=== PATIENT | male | born 1945 | race Caucasian/White ===

== ENCOUNTER 2016-06-06 13:58 | Inpatient (IN) | payer OTHER, BC ==
[~2016-06-06] VITALS: Ht 172.7 cm; Wt 99.0 kg
[~2016-06-06 13:58] MED LIST: ASPEC81 PO; LPR25 PO; LPT40 PO; LSN5 PO; NTRSLP4 SL; PLV75 PO
[2016-06-06] MEDS ORDERED: SODIUM CHLORIDE 0.9% 1000ML 1,000 ML IV STA ×2 (14:32→15:53)
[2016-06-06] MEDS ORDERED: PIPERACILLIN/TAZOBACTAM 4.5 GM/100ML D5W IV STA (15:00)
[2016-06-06] MEDS ORDERED: OPTIRAY 320 IV PRN (15:00)
--- NOTE | 2016-06-06 15:17 | DIAGNOSTIC IMAGING REPORT ---
CHEST ONE VIEW PORTABLE CLINICAL HISTORY: fever dyspnea COMPARISON STUDY: 05/29/2016 FINDINGS: Slowly developing parenchymal infiltrate left base. Lungs otherwise appear clear. Diaphragms smooth. IMPRESSION: Small developing parenchymal infiltrate left base. Electronically signed by: Darrian Hernandez M.D. 06/06/2016 3:16 PM
[2016-06-06] MEDS ORDERED: LEVAQUIN 750MG / 150ML D5W IV STA (15:26)
[2016-06-06 15:30] LABS: BASO % 0.1 %; BASO ABS # 0.01 K/uL (0-0.2); COMPLETE YES; EOS % 0.1 %; HEMATOCRIT 39.4 % (42-52); IG% 0.1 %; LYMPH ABS # 0.72 K/uL (1.2-3.4); MEAN CELL VOLUME 95.4 fL (80-100); MEAN CORPUSCULAR HEMOGLOBIN 33.4 pg (25-34); MEAN PLATELET VOLUME 11.1 fL (7.4-10.4); MONO % 7.4 %; NEUT % 85.3 %; PLATELET COUNT 110 K/uL (130-400); RED BLOOD COUNT 4.13 M/uL (4.7-6.1); WHITE BLOOD COUNT 10.29 K/uL (4.8-10.8)
[2016-06-06] MEDS ORDERED: LEVAQUIN 500MG / 100ML D5W IV ONE (15:30)
[2016-06-06 15:36] LABS: INR 1.1 (0.9-1.1); PROTHROMBIN TIME (PATIENT) 12.1 SECONDS (9.0-12.0)
[2016-06-06 15:39] LABS: ISTAT CREATININE 1.4 mg/dl (0.6-1.3); ISTAT HEMOGLOBIN 13.3 g/dl (14.0-18.0); ISTAT IONIZED CALCIUM 1.16 mmol/l (1.12-1.32)
[2016-06-06 15:46] LABS: ALT/SGPT 37 U/L (12-78); BLOOD UREA NITROGEN 24 mg/dl (7-18); BUN/CREATININE RATIO 18.2 (10-20); CALCIUM 8.4 mg/dl (8.5-10.1); CARBON DIOXIDE 26 mmol/L (21-32); CHLORIDE 100 mmol/L (98-107); GLUCOSE 126 mg/dl (70-99); MAGNESIUM 2.2 mg/dl (1.8-2.4); POTASSIUM 3.5 mmol/L (3.5-5.1); SODIUM 137 mmol/L (136-145)
[2016-06-06 15:52] LABS: ALKALINE PHOSPHATASE 78 U/L (45-117); AST/SGOT 41 U/L (15-37)
[2016-06-06] MEDS ORDERED: NITROGLYCERIN 0.4 MG SL PER TAB CHARGE SL PRN (17:00)
[2016-06-06 18:25] VITALS: BP 128/67; PULSE 99; TEMP 36.3; O2SAT 99; Ht 172.7 cm; Wt 99.0 kg
[2016-06-06 18:37] LABS: URINE APPEARANCE CLEAR (CLEAR); URINE BILIRUBIN NEG (NEG); URINE COLOR YELLOW; URINE EPITHELIAL CELL AUTO >30 /lpf (0-5); URINE NITRITE NEG (NEG); URINE PH 5.5 (4.5-7.5); URINE SPECIFIC GRAVITY 1.019 (1.000-1.030); UROBILINOGEN NEG (NEG); ZZUR CULT IF INDIC CLEAN CATCH NO
[2016-06-06 18:38] LABS: MANUAL MICROSCOPIC REQUIRED? NO; REVIEW REQ? YES
[2016-06-06 18:52] LABS: URINE MUCUS PRESENT (NONE PRSENT)
--- NOTE | 2016-06-06 18:52 | EMERGENCY ROOM VISIT NOTE ---
History Report prepared by David: Audrey Ruiz Under the Supervision of: Dr. Adan Oconnor D.O. First contact with patient: 14:14 Chief Complaint: ILLNESS Stated Complaint: N/V/D, TEMP 39.5 History of Present Illness The patient is a 71 year old male who presents to the Emergency Room with complaints of worsening illness that started 4 days ago. The patient has been experiencing a fever for 3 days and the highest temperature was recorded at 39.5. The fever is relieved with Tylenol. He is also experiencing a headache, shaking, nausea, vomiting, diarrhea, and generalized muscle pain. The patient vomited twice yesterday and once this morning. He denies cough, rhinorrhea, sore throat, pain or burning with urination, and hematochezia. He also denies open wounds or sores. The patient was seen by his PCP two days ago and they thought it was viral but when his fever elevated his decided to bring him in. His is a nurse in the ED. The patient's states that the patient's daughter and son were sick with similar symptoms when they came to visit for [place]. The patient had a [place] last week and received a heart catheterization. One stent was put in. He was started on metoprolol, statin, lisinopril, Plavix, and aspirin, which are all new for him. The patient denies recent C Diff exposure. Source of History: patient Onset: 4 days ago Position: other (generalized) Quality: other (illness) Timing: worsening Associated Symptoms: + diarrhea, + fevers, + headache, + nausea, + vomiting , No cough, No hematochezia, No sorethroat, No urinary symptoms (pain or burning with urination) Note: shaking, generalized muscle pain, no rhinorrhea Review of Systems See HPI for pertinent positives & negatives. A total of 10 systems reviewed and were otherwise negative. Past Medical & Surgical Medical Problems: (1) LLL PNEUMONIA (2) NSTEMI (non-ST elevated myocardial infarction) Family History No significant family history Social History Smoking Status: Never Smoker Marital Status: Housing Status: lives with significant other Occupation Status: employed Current/Historical Medications Scheduled Aspirin (Aspirin EC Low Dose), 81 MG PO QAM Atorvastatin (Atorvastatin Calcium), 40 MG PO QAM Clopidogrel Bisulfate (Clopidogrel), 75 MG PO QAM Lisinopril (Lisinopril), 5 MG PO QAM Metoprolol Tartrate (Lopressor), 25 MG PO Q12 Scheduled PRN Nitroglycerin (Nitrostat), 0.4 MG SL UD PRN for Chest Pain Allergies Coded Allergies: No Known Allergies (Unverified , 06/06/16) Physical Exam Vital Signs Date Time Temp Pulse Resp B/P Pulse Ox O2 Delivery O2 Flow Rate FiO2 06/06/16 16:08 36.8 86 21 102/62 91 Room Air 06/06/16 14:08 37.3 102 20 97/63 90 Room Air Physical Exam GENERAL: alert, sitting up in bed, well appearing, well nourished, no distress, non-toxic EYE EXAM: normal conjunctiva OROPHARYNX: no exudate, no erythema, lips, buccal mucosa, and tongue normal and mucous membranes are moist NECK: supple, no nuchal rigidity, no adenopathy, non-tender LUNGS: Clear to auscultation. Normal chest wall mechanics HEART: no murmurs, S1 normal and S2 normal ABDOMEN: abdomen soft, non-tender, normo-active bowel sounds, no masses, no rebound or guarding. BACK: Back is symmetrical on inspection and there is no deformity, no midline tenderness, no CVA tenderness. SKIN: no rashes and no bruising UPPER EXTREMITIES: upper extremities are grossly normal. LOWER EXTREMITIES: No pitting edema. NEURO EXAM: Normal sensorium, cranial nerves II-XII grossly intact, normal speech, no gross weakness of arms, no gross weakness of legs. Medical Decision & Procedures ER Provider Diagnostic Interpretation: Xray results per the radiologist and my interpretation. Other results have been interpreted by the radiologist and reviewed by me. CHEST ONE VIEW PORTABLE CLINICAL HISTORY: fever dyspnea COMPARISON STUDY: 05/29/2016 FINDINGS: Slowly developing parenchymal infiltrate left base. Lungs otherwise appear clear. Diaphragms smooth. IMPRESSION: Small developing parenchymal infiltrate left base. Electronically signed by: Darrian Hernandez M.D. 06/06/2016 3:16 PM Laboratory Results 06/06/16 15:05 Red Blood Count 4.13, Mean Corpuscular Volume 95.4, Mean Corpuscular Hemoglobin 33.4, Mean Corpuscular Hemoglobin Concent 35.0, Mean Platelet Volume 11.1, Neutrophils (%) (Auto) 85.3, Lymphocytes (%) (Auto) 7.0, Monocytes (%) (Auto) 7.4, Eosinophils (%) (Auto) 0.1, Basophils (%) (Auto) 0.1, Neutrophils # (Auto) 8.78, Lymphocytes # (Auto) 0.72, Monocytes # (Auto) 0.76, Eosinophils # (Auto) 0.01, Basophils # (Auto) 0.01 06/06/16 15:05 Test 06/06/16 15:00 06/06/16 15:05 06/06/16 15:20 06/06/16 15:28 Influenza Type A Antigen Neg for Influ A (NEG) Influenza Type B Antigen Neg for Influ B (NEG) White Blood Count 10.29 K/uL (4.8-10.8) Red Blood Count 4.13 M/uL (4.7-6.1) Hemoglobin 13.8 g/dL (14.0-18.0) Hematocrit 39.4 % (42-52) Mean Corpuscular Volume 95.4 fL (80-100) Mean Corpuscular Hemoglobin 33.4 pg (25-34) Mean Corpuscular Hemoglobin Concent 35.0 g/dl (32-36) Platelet Count 110 K/uL (130-400) Mean Platelet Volume 11.1 fL (7.4-10.4) Neutrophils (%) (Auto) 85.3 % Lymphocytes (%) (Auto) 7.0 % Monocytes (%) (Auto) 7.4 % Eosinophils (%) (Auto) 0.1 % Basophils (%) (Auto) 0.1 % Neutrophils # (Auto) 8.78 K/uL (1.4-6.5) Lymphocytes # (Auto) 0.72 K/uL (1.2-3.4) Monocytes # (Auto) 0.76 K/uL (0.11-0.59) Eosinophils # (Auto) 0.01 K/uL (0-0.5) Basophils # (Auto) 0.01 K/uL (0-0.2) RDW Standard Deviation 44.8 fL (36.4-46.3) RDW Coefficient of Variation 12.9 % (11.5-14.5) Immature Granulocyte % (Auto) 0.1 % Immature Granulocyte # (Auto) 0.01 K/uL (0.00-0.02) Prothrombin Time 12.1 SECONDS (9.0-12.0) Prothromb Time International Ratio 1.1 (0.9-1.1) Est Creatinine Clear Calc Drug Dose 57.4 ml/min Estimated GFR () 63.2 Estimated GFR (Non- 54.5 BUN/Creatinine Ratio 18.2 (10-20) Calcium Level 8.4 mg/dl (8.5-10.1) Magnesium Level 2.2 mg/dl (1.8-2.4) Total Bilirubin 0.9 mg/dl (0.2-1) Direct Bilirubin 0.3 mg/dl (0-0.2) Aspartate Amino Transf (AST/SGOT) 41 U/L (15-37) Alanine Aminotransferase (ALT/SGPT) 37 U/L (12-78) Alkaline Phosphatase 78 U/L (45-117) Total Creatine Kinase 41 U/L (39-308) Creatine Kinase MB < 0.5 ng/ml (0.5-3.6) Creatine Kinase MB Ratio (0-3.0) Troponin I 0.033 ng/ml (0-0.045) Total Protein 7.1 gm/dl (6.4-8.2) Albumin 3.2 gm/dl (3.4-5.0) Bedside Lactic Acid Venous 1.11 mmol/L (0.90-1.70) Bedside Hemoglobin 13.3 g/dl (14.0-18.0) Bedside Hematocrit 39 % (42-52) Bedside Sodium 137 mEq/L (135-144) Bedside Potassium 3.5 mEq/L (3.3-5.0) Bedside Chloride 97 mEq/L (101-112) Bedside Total CO2 24 mEq/l (24-31) Anion Gap 21.0 mmol/L (16-25) Bedside Blood Urea Nitrogen 24 mg/dl (7-18) Bedside Creatinine 1.4 mg/dl (0.6-1.3) Bedside Glucose (other) 134 mg/dl (70-99) Bedside Ionized Calcium (Priscilla) 1.16 mmol/l (1.12-1.32) Laboratory results per my review. Medications Administered Medications (Trade) Dose Ordered Sig/Anali Route Start Time Stop Time Status Last Admin Dose Admin Sodium Chloride (Nss 1000ml) 1,000 ml @ 999 mls/hr Q1H1M STAT IV 06/06/16 14:32 06/06/16 15:32 DC 06/06/16 14:32 999 MLS/HR Levofloxacin 750 mg 750 mg NOW STAT IV 06/06/16 15:26 06/06/16 15:27 DC 06/06/16 15:35 750 MG Sodium Chloride (Nss 1000ml) 1,000 ml @ 999 mls/hr Q1H1M STAT IV 06/06/16 15:53 06/06/16 16:53 DC 06/06/16 15:53 999 MLS/HR ECG Indication: nausea Rate (beats per minute): 88 Rhythm: sinus rhythm Findings: T-wave inversion (Inferior), left axis deviation ED Course ED COURSE: Vital signs were reviewed and showed hypotension, tachycardia, and hypoxia. The patients medical record was reviewed The above diagnostic studies were performed and reviewed. ED treatments and interventions as stated above. 1418: The patient was evaluated in room C7. A complete history and physical examination was performed. 1432: Ordered Sodium Chloride 1000 ml @ 999 mls/hr IV 1500: Ordered Zosyn 4.5 gm IV 1526: Ordered Levofloxacin 750 mg IV 1530: Ordered Levofloxacin 500 mg IV 1553: Ordered Sodium Chloride 1000 ml @ 999 mls/hr IV 1555: I [facility] the [facility] He will evaluate the patient for further management. 1616: Upon reevaluation, the patient is resting comfortably. I discussed my findings with the patient and he understands and agrees with the treatment plan. Based on the patients age, coexisting illnesses, exam and lab findings the decision to treat as an inpatient was made. The patient remained stable while under my care. The patient will be evaluated for further management.. Medical Decision Differential diagnosis includes etiologies such as sepsis, UTI, pneumonia, metabolic, electrolyte abnormalities, cardiac sources, intracerebral event, toxicologic, neurologic, as well as others were entertained. Patient is a 71-year-old male who presents the ER with nausea, vomiting and some intermittent diarrhea. He notes he has been having fevers at home with a max temp today of 39.5. He has been following with his primary care doctor and saw him on Friday. He denies any productive cough. He doesn't diffuse myalgias. Labs showed no significant leukocytosis and a stable hemoglobin. BMP along with LFTs and bilirubin are unremarkable. Troponin was detectable but not positive. UA was negative, an influenza screen was negative. Chest x- ray showed focal infiltrate. His abdominal exam was completely benign. Initially upon presentation he is found to be hypotensive with systolic pressures in the 90s along with O2 saturation of 90%. He was also slightly tachycardic. He was given 2 boluses of normal saline along with Levaquin and admitted to internal medicine as sepsis secondary to pneumonia. Consults Time Called: [phone] Consulting Physician[facility] Returned Call: [phone] I reviewed the patient's case with Dr. Saavedra [facility]. He will evaluate the patient for further management. Impression Primary Impression: Sepsis Additional Impression: Pneumonia Scribe Attestation The scribe's documentation has been prepared under my direction and personally reviewed by me in its entirety. I confirm that the note above accurately reflects all work, treatment, procedures, and medical decision making performed by me. Departure Information Dispostion Other (Being evaluated by Dr. Saavedra) Referrals Rich Kumar M.D. (PCP) Patient Instructions A Signature Page, My [facility]
[2016-06-06 18:53] LABS: URINE PATH CASTS 0-3 WBC CASTS /lpf (0)
[2016-06-06 19:11] VITALS: BP 107/62; PULSE 73; TEMP 36.8; O2SAT 96
[2016-06-06] MEDS: SODIUM CHLORIDE 0.9% 1000ML 1,000 ML IV SCH (19:33)
[2016-06-06] MEDS: CEFTRIAXONE SOD INJ 2,000 MG in DEXTROSE 5% 50ML 50 ML IV SCH (19:54)
[2016-06-06] MEDS: AZITHROMYCIN IV 500 MG in DEXTROSE 5% 250ML 250 ML IV SCH (20:57)
[2016-06-06] MEDS: METOPROLOL TARTRATE 25 MG TAB PO SCH (20:59)
[2016-06-07] VITALS: O2SAT 99
[2016-06-07 00:03] VITALS: BP 136/76; PULSE 74; TEMP 36.8; O2SAT 96
--- NOTE | 2016-06-07 04:45 | HISTORY & PHYSICAL EXAMINATION ---
DATE OF ADMISSION: 06/06/2016 A 71-year-old male admitted through the Emergency Room with fever and chills, generalized weakness, shortness of breath, nausea, vomiting and evidence of a left lower lobe pneumonia. The patient was admitted to [facility] on 05/29/2016 with chest pain. His cardiac catheterization showed a 99% stenosis of his right coronary artery. He had a stent placed. It was a drug-eluting stent. The procedure was very well tolerated. He was discharged home the following day. The procedure was done through his right wrist. The patient was doing quite well. He was not having any problem or any complaints. This past Friday, he started having problem with generalized ache and pain. He was feeling congested. He was developing fever. He had some chills. I did see him for his hospital followup and at that time he was complaining of feeling weak and tired. He was congested. He had some cough. Laboratory tests were ordered including influenza A and B, which were normal. Since then, his symptoms progressed. On the morning of admission, he called the office, stating he was having severe fever and chills. His temperature was over 39. He was feeling quite tired. He was congested. So I asked him to come to the Emergency Room. He was evaluated. His influenza A and B were negative. His chest x-ray showed evidence of developing left lower lobe infiltrate. I saw the patient in the Emergency Room and because of the severity of his symptoms, he was admitted for further treatment. PAST MEDICAL HISTORY: 1. Non-ST segment elevation myocardial infarction diagnosed on 05/29/2016. He underwent emergency cardiac catheterization. He had 99% stenosis of his right coronary artery. He had a drug-eluting stent placed. 2. Back in May of 2010, he was diagnosed with multiloculated liver abscess. He did have percutaneous drainage and subsequently transferred to [facility]. He did recover with antibiotic treatment. Did not require any further intervention. 3. Carcinoma of the prostate diagnosed in 2010, treated with brachytherapy on 04/19/2011. 4. History of colonic polyps. He has had repeated colonoscopies. The last one in 2009, the last colonoscopy was done in 2013 and was negative for any polyps. 5. Tonsillectomy at age 4. 6. Hypercholesterolemia. 7. Left inguinal hernia repair in the past. SOCIAL HISTORY: He is , has 3 children. He stopped smoking back in 1993. He did smoke for 35 years up to 2-3 packs per day. He also chewed tobacco and he stopped in 2004. He also smoked a pipe in the past. No alcohol. No excessive coffee, tea or soft drinks. 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 FAMILY HISTORY: His mother is in her 90s. She is at [facility]. His father at age 73, had a gunshot wound. He had 2 brothers and 2 sisters. One brother had heart disease. ALLERGIES: None. CURRENT MEDICATIONS: Include: 1. Plavix 75 mg daily. 2. Aspirin 81 mg daily. 3. Lipitor 40 mg daily. 4. Lisinopril 5 mg daily. 5. Metoprolol tartrate 25 mg twice a day. 6. Nitrostat 0.4 mg sublingually if needed. REVIEW OF SYSTEMS: The patient complains of generalized ache and pain. He is feeling weak. He has had recurrent fever. Recurrent chills. Recurrent nausea and vomiting. He has not had any chest pain. He was complaining of shortness of breath. No diarrhea. He was having pain in his back and extremities. PHYSICAL EXAMINATION: GENERAL: Well developed in no distress. His recorded weight was 99 pounds, height 172.7 cm, BMI 33.2. VITAL SIGNS: On arrival to the Emergency Room, his blood pressure was 97/63, pulse 102, respirations 20, temperature 37.2, oxygen saturation 90% on room air. SKIN: Warm and dry. No rash. HEENT: Eyes were normal. Oronasal and pharyngeal mucosa were normal. Tympanic membranes were normal. NECK: Supple without lymph node or thyroid enlargement. No JVD. Normal carotid pulses. No bruit. CHEST: Normal. HEART: Regular heart sounds without any murmur, rub or gallop. LUNGS: He does have scattered rhonchi. Rales, left side of his lung field. ABDOMEN: Soft, nontender without organomegaly or masses. BACK: No spinal tenderness. EXTREMITIES: No edema, clubbing or cyanosis. Good pulses. NEUROLOGIC: He is alert and oriented without evidence of any deficit. LABORATORY TESTS: On admission, WBC count 10,290, hemoglobin 13.8, hematocrit 39.4, platelet count 110,000. His INR was 1.1. Sodium 137, potassium 3.5, chloride 100, CO2 26, BUN 24, creatinine 1.3, glucose 126, calcium 8.4, magnesium 2.2, total bilirubin 0.9, direct bilirubin 0.3, AST 41, ALT 37, alkaline phosphatase 78, total CK 41, MB fraction less than 0.5, troponin I 0.033. Total protein 7.1, albumin 3.2. His chest x-ray showed evidence of a developing parenchymal infiltrate in the left base. ASSESSMENT: 1. Left lower lobe pneumonia. 2. Coronary artery disease. 3. Status post stenting of a 99% stenosis of his right coronary artery done on 05/29/2016. 4. Hypercholesterolemia. PLAN: The patient was admitted to medical bed. Resuscitation level 1. All his cultures were done in the Emergency Room. He was started on IV antibiotics. He will be continued on Rocephin and Zithromax. Tylenol for any fever or pain. He was started on IV fluid. He was continued on his oral medications. The plan is to proceed with IV antibiotics. Wait for his cultures. Adjust his antibiotic therapy as needed. Once his condition improves, he will be able to go home on oral antibiotics.
[2016-06-07 06:44] LABS: HEMATOCRIT 33.9 % (42-52); MEAN CELL VOLUME 95.2 fL (80-100); MEAN CORPUSCULAR HEMOGLOBIN 33.1 pg (25-34); MEAN CORPUSCULAR HGB CONC 34.8 g/dl (32-36); RED BLOOD COUNT 3.56 M/uL (4.7-6.1)
[2016-06-07 07:06] LABS: BASO % 0.1 %; BASO ABS # 0.01 K/uL (0-0.2); COMPLETE YES; EOS % 0.1 %; IG% 0.1 %; LARGE PLATELETS 1+; LYMPH % 6.8 %; LYMPH ABS # 0.67 K/uL (1.2-3.4); MEAN PLATELET VOLUME 10.7 fL (7.4-10.4); MONO % 14.5 %; NEUT % 78.4 %; PLATELET COUNT 95 K/uL (130-400); PLT ESTIMATE DECREASED
[2016-06-07 07:19] LABS: BUN/CREATININE RATIO 15.1 (10-20); CREATININE 0.96 mg/dl (0.60-1.40); POTASSIUM 3.6 mmol/L (3.5-5.1)
[2016-06-07] MEDS: ASPIRIN 81 MG ECTAB PO SCH (07:48)
[2016-06-07] MEDS: ATORVASTATIN 40 MG TAB PO SCH (07:48)
[2016-06-07] MEDS: SODIUM CHLORIDE 0.9% 1000ML 1,000 ML IV SCH ×3 (07:48→19:39)
[2016-06-07] MEDS: LISINOPRIL 5 MG TAB PO SCH (07:49)
[2016-06-07] MEDS: CLOPIDOGREL BISULFATE 75 MG TAB PO SCH (07:49)
[2016-06-07] MEDS: METOPROLOL TARTRATE 25 MG TAB PO SCH ×2 (07:49→19:38)
[2016-06-07 07:52] VITALS: BP 133/80; PULSE 79; TEMP 36.7; O2SAT 93
[2016-06-07] MEDS ORDERED: MAGNESIUM CITRATE 296 ML/BTL PO ONE (08:15)
--- NOTE | 2016-06-07 08:35 | Clinical Documentation Query ---
Dr. TRISH MCKINNEY [facility] : CLINICAL DOCUMENTATION QUERY Patient is a 71 year old male admitted with left lower lobe pneumonia in the setting of recurrent nausea with vomiting. He is being treated with IV Rocephin, IV Zithromax, and IVF, and monitored with serial chemistries and hematology. In your clinical opinion is this patient being managed for: ( ) Possible aspiration pneumonia ( ) Other explanation of clinical findings (Please Explain) ( ) Unable to determine (Please Define) ( ) Need to Discuss ( x ) Not Agree The medical record reflects the following clinical findings, treatment, and risk factors. Clinical Indicators: Pneumonia in the setting of recurrent nausea and vomiting. Treatment: He is being treated with IV Rocephin, IV Zithromax, and IVF, and monitored with serial chemistries and hematology Risk Factors: Recurrent nausea with vomiting Please clarify and document your clinical opinion in the progress notes and discharge summary. Terms such as "probable", "suspected", "likely", "questionable", "possible", or "still to be ruled out" are acceptable. IF IN AGREEMENT, YOU MUST DOCUMENT ABOVE DIAGNOSTIC STATEMENT IN DAILY PROGRESS NOTES AND DISCHARGE SUMMARY. This document is not part of the patient's record. Thank You, Jemal Lyons, RN [phone]
[2016-06-07] MEDS ORDERED: NURSING VERBAL MED ORDER ONE (08:45)
[2016-06-07 15:27] VITALS: BP 130/82; PULSE 18; PULSE 78; TEMP 36.8; O2SAT 93
[2016-06-07] MEDS: CEFTRIAXONE SOD INJ 2,000 MG in DEXTROSE 5% 50ML 50 ML IV SCH (19:39)
[2016-06-07 19:43] VITALS: BP 119/71; PULSE 73
[2016-06-07] MEDS: AZITHROMYCIN IV 500 MG in DEXTROSE 5% 250ML 250 ML IV SCH (20:34)
[2016-06-07 23:25] VITALS: BP 119/77; PULSE 61; TEMP 36.5; O2SAT 94
--- NOTE | 2016-06-07 23:48 | PROGRESS NOTE ---
DATE: 06/07/2016 A 71-year-old male admitted with left lower lobe pneumonia. He has coronary artery disease. He just was hospitalized with chest pain and had a [id number]-thlpcat elevation myocardial infarction and had cardiac catheterization showing 99% stenosis of his right coronary artery which was stented with a drug-eluting stent. He also has hypercholesterolemia. The patient was admitted. Cultures were done. He was started on Rocephin and Zithromax. Since admission, he remains completely afebrile. He is still feeling weak and tired and has poor appetite. He has no headache, no dizziness. No chest pain, no shortness of breath. He still has a cough, bringing up some sputum. No nausea, no vomiting, but his appetite is poor. No problem with his bowel movements. No problem urinating. No ankle edema. PHYSICAL EXAMINATION: GENERAL: Well developed, in no distress. VITAL SIGNS: Blood pressure 133/80, pulse 79, respiration 22, temperature 36.7, oxygen saturation 93% on room air. SKIN: Warm and dry. No rash. HEENT: No evidence of any mucosal abnormality. NECK: No JVD, no adenopathy. HEART: Regular heart sounds. No evident murmur, rub or gallop. LUNGS: Bilateral rhonchi. He does have evidence of rales at the left base. ABDOMEN: Soft, nontender. BACK: No spinal tenderness. EXTREMITIES: No edema, clubbing or cyanosis. No joint or muscle tenderness. TODAY'S LABORATORY TESTS: WBC count 9900, hemoglobin 11.8, hematocrit 33.9, platelet count 95,000. Sodium 139, potassium 3.6, chloride 105, CO2 25, BUN 15, creatinine 0.96, glucose 109, calcium 8.0. ASSESSMENT: 1. Left lower lobe pneumonia. 2. Coronary artery disease. 3. Hyperlipidemia. PLAN: 1. Continue all his medications. 2. He is encouraged to get out of bed and ambulate. 3. Waiting for the final culture results. 4. Overall, he is slowly improving. He has not had any fever since admission neither did he have any chills.
[2016-06-08 06:54] VITALS: BP 134/78; PULSE 64; TEMP 36.7; O2SAT 94
[2016-06-08] MEDS: CLOPIDOGREL BISULFATE 75 MG TAB PO SCH (07:30)
[2016-06-08] MEDS: ATORVASTATIN 40 MG TAB PO SCH (07:30)
[2016-06-08] MEDS: ASPIRIN 81 MG ECTAB PO SCH (07:30)
[2016-06-08] MEDS: METOPROLOL TARTRATE 25 MG TAB PO SCH ×2 (07:30→19:31)
[2016-06-08] MEDS: LISINOPRIL 5 MG TAB PO SCH (07:31)
[2016-06-08] MEDS: SODIUM CHLORIDE 0.9% 1000ML 1,000 ML IV SCH ×2 (07:31→17:46)
[2016-06-08 08:10] LABS: BASO % 0.3 %; BASO ABS # 0.03 K/uL (0-0.2); COMPLETE YES; EOS % 0.6 %; HEMATOCRIT 32.4 % (42-52); IG% 0.3 %; LYMPH % 10.2 %; LYMPH ABS # 0.95 K/uL (1.2-3.4); MEAN CELL VOLUME 94.2 fL (80-100); MEAN CORPUSCULAR HEMOGLOBIN 32.8 pg (25-34); MEAN CORPUSCULAR HGB CONC 34.9 g/dl (32-36); MEAN PLATELET VOLUME 11.1 fL (7.4-10.4); MONO % 9.2 %; NEUT % 79.4 %; PLATELET COUNT 107 K/uL (130-400); RED BLOOD COUNT 3.44 M/uL (4.7-6.1); WHITE BLOOD COUNT 9.33 K/uL (4.8-10.8)
[2016-06-08 08:38] LABS: BUN/CREATININE RATIO 11.8 (10-20); CALCIUM 7.9 mg/dl (8.5-10.1); CREATININE 0.85 mg/dl (0.60-1.40); POTASSIUM 3.3 mmol/L (3.5-5.1)
[2016-06-08] MEDS ORDERED: POTASSIUM CHLORIDE 10 MEQ TABCR PO ONE ×2 (10:00→14:00)
[2016-06-08 15:10] VITALS: BP 132/78; PULSE 72; TEMP 36.9; O2SAT 94
[2016-06-08] MEDS: ACETAMINOPHEN 325 MG TAB PO PRN (17:51)
[2016-06-08] MEDS: CEFTRIAXONE SOD INJ 2,000 MG in DEXTROSE 5% 50ML 50 ML IV SCH (19:30)
[2016-06-08 19:38] VITALS: BP 129/72; PULSE 72; TEMP 36.8
[2016-06-08] MEDS: AZITHROMYCIN IV 500 MG in DEXTROSE 5% 250ML 250 ML IV SCH (20:35)
[2016-06-08 22:53] VITALS: BP 115/69; PULSE 59; TEMP 36.9; O2SAT 94
[2016-06-09] MEDS: ACETAMINOPHEN 325 MG TAB PO PRN (03:10)
[2016-06-09] MEDS: SODIUM CHLORIDE 0.9% 1000ML 1,000 ML IV SCH (05:29)
--- NOTE | 2016-06-09 05:50 | PROGRESS NOTE ---
DATE: 06/08/2016 SUBJECTIVE: A 71-year-old male admitted with a left upper lobe pneumonia. He just had a non-ST segment elevation myocardial infarction and had a 99% stenosis of his RCA and had a drug-eluting stent placed. Since admission, he remains afebrile. He is still feeling weak and tired. His appetite is still poor. He denied any headache. No dizziness. Denied any chest pain. No shortness of breath. He has been ambulating. No nausea, no vomiting. Poor appetite. No problem urinating. One of the 2 blood cultures drawn on admission did grow gram positive cocci and the final report is still pending. PHYSICAL EXAMINATION: GENERAL: Well developed, in no distress. VITAL SIGNS: Blood pressure 134/78, pulse 64, respiration 18, temperature 36.7, oxygen saturation 94% on room air. SKIN: Warm and dry. No rash. HEENT: No mucosal abnormality. NECK: No JVD. No adenopathy. HEART: Regular heart sounds. LUNGS: He does have basilar rales on the left side. ABDOMEN: Soft, nontender, without organomegaly or masses. BACK: No spinal tenderness. EXTREMITIES: No edema, clubbing, or cyanosis. TODAY'S LABORATORY TESTS: WBC count 9330, hemoglobin 11.3, hematocrit 32.4, platelet count 107,000. Sodium 140, potassium 3.3, chloride 106, CO2 of 25, BUN 10, creatinine 0.85, glucose 94, calcium 7.9. As noted, one blood culture is growing gram positive cocci. ASSESSMENT: 1. Left lower lobe pneumonia. 2. One positive blood culture. I am not sure up to this point whether it is just a contaminant. 3. Coronary artery disease. 4. Hypercholesterolemia. PLAN: 1. Continue the same antibiotics. 2. Continue ambulation. 3. His cardiac status is stable. 4. If his condition remains stable and his blood culture prove to be more of a contaminant then I anticipate sending home tomorrow. JORDON
[2016-06-09 07:04] VITALS: BP 130/68; PULSE 70; TEMP 36.9; O2SAT 95
[2016-06-09 07:55] LABS: HEMATOCRIT 32.7 % (42-52); MEAN CELL VOLUME 94.5 fL (80-100); MEAN CORPUSCULAR HEMOGLOBIN 32.1 pg (25-34); MEAN CORPUSCULAR HGB CONC 33.9 g/dl (32-36); MEAN PLATELET VOLUME 10.8 fL (7.4-10.4); PLATELET COUNT 128 K/uL (130-400); RED BLOOD COUNT 3.46 M/uL (4.7-6.1); WHITE BLOOD COUNT 9.11 K/uL (4.8-10.8)
[2016-06-09] MEDS: ASPIRIN 81 MG ECTAB PO SCH (08:10)
[2016-06-09] MEDS: ATORVASTATIN 40 MG TAB PO SCH (08:10)
[2016-06-09] MEDS: METOPROLOL TARTRATE 25 MG TAB PO SCH (08:10)
[2016-06-09] MEDS: CLOPIDOGREL BISULFATE 75 MG TAB PO SCH (08:10)
[2016-06-09] MEDS: LISINOPRIL 5 MG TAB PO SCH (08:11)
[2016-06-09 08:20] LABS: BASO % 0.2 %; BASO ABS # 0.02 K/uL (0-0.2); COMPLETE YES; EOS % 1.1 %; IG% 0.2 %; LYMPH % 13.8 %; LYMPH ABS # 1.26 K/uL (1.2-3.4); MONO % 7.2 %; NEUT % 77.5 %
[2016-06-09 08:28] LABS: BUN/CREATININE RATIO 9.5 (10-20); CALCIUM 7.8 mg/dl (8.5-10.1); CREATININE 0.84 mg/dl (0.60-1.40); POTASSIUM 3.7 mmol/L (3.5-5.1)
--- NOTE | 2016-06-09 09:22 | DIAGNOSTIC IMAGING REPORT ---
SINGLE VIEW CHEST CLINICAL HISTORY: Left lower lobe consolidation FINDINGS: An AP, portable, upright chest radiograph is compared to study dated 06/06/2016. The heart is mildly enlarged and there is atherosclerotic calcification of the thoracic aorta. There is mild elevation of the left hemidiaphragm and bibasilar atelectasis. No airspace consolidation is seen typical for pneumonia and there is no pleural effusion. No pneumothorax is seen. The skeletal structures are osteopenic. The bony thorax is grossly intact. IMPRESSION: Mild cardiac enlargement with no acute cardiopulmonary abnormality. Electronically signed by: Alexandro Hernandez M.D. 06/09/2016 9:20 AM
[2016-06-09] MEDS ORDERED: AMOX500T PO (09:30)
--- NOTE | 2016-06-09 09:33 | Discharge Instructions ---
Discharge Instructions Admission Reason for Admission: Lll Pneumonia Discharge Discharge Diagnosis / Problem: LEFT LOWER LOBE PNEUMONIA. CORONARY ARTERY DISEASE. HYPERCHOLESTEROLEMIA Discharge Goals Goal(s): Decrease discomfort, Improve disease control Activity Recommendations Activity Limitations: resume your previous activity . Instructions / Follow-Up Instructions / Follow-Up DR COWART IN [address] JACOBSON SCHEDULED Current Hospital Diet Patient's current hospital diet: AHA Diet (Heart Healthy) Discharge Diet Recommended Diet: AHA Diet (Heart Healthy) Pending Studies Studies pending at discharge: no Medical Emergencies . Who to Call and When: Medical Emergencies: If at any time you feel your situation is an emergency, please call 911 immediately. . Non-Emergent Contact Non-Emergency issues call your: Primary Care Provider . . "Provider Documentation" section prepared by Rich Cowart. VTE Core Measure Inpt VTE Proph given/why not?: Other Anticoagulation
[2016-06-09 09:42] VITALS: BP 130/68; PULSE 70; TEMP 36.9; O2SAT 95
--- NOTE | 2016-06-09 18:47 | PROGRESS NOTE ---
DATE: 06/09/2016 A 71-year-old male, admitted with left lower lobe pneumonia. He recently was hospitalized with a non-ST segment elevation myocardial infarction and had 99% stenosis of his right coronary artery with a drug-eluting stent placed. Overall, he is doing well. He has remained afebrile since his admission and was started on the IV antibiotics. His cough has subsided. This morning he denied any headache, dizziness or lightheadedness. No chest pain, no shortness of breath. No cough, no sputum. No abdominal pain, no nausea, no vomiting. No problem with his bowel movements or urination. No pain in his back or extremities. He has been ambulating. PHYSICAL EXAMINATION: GENERAL: Well-developed, in no distress. VITAL SIGNS: Blood pressure 130/68, pulse 70, respirations 18, temperature 36.9 and oxygen saturation 95% on room air. SKIN: Warm and dry. No rash. HEENT: No evidence of any mucosal congestion. NECK: No JVD, no adenopathy. HEART: Regular heart sounds. LUNGS: Clear. ABDOMEN: Soft, nontender. BACK: No spinal tenderness. EXTREMITIES: No edema, clubbing or cyanosis. TODAY'S LABORATORY TESTS: WBC count 9110, hemoglobin 11.1, hematocrit 32.7, platelet count 128,000. Sodium 143, potassium 3.7, chloride 109, CO2 25, BUN 8, creatinine 0.84, glucose 92, calcium 7.8. Chest x-ray showed no evidence of any pulmonary abnormality. He does have mild cardiomegaly. The suspected infiltrate in the left lower lobe has completely resolved. ASSESSMENT: 1. Left lower lobe pneumonia. 2. Coronary artery disease. 3. Status post stenting of 99% stenosis of his right coronary artery. 4. Hypercholesterolemia. PLAN: 1. Overall, his condition is stable and he has did very well. His lung abnormality has clear. 2. He will continue all his preadmission medications. 3. Augmentin 500 mg three times a day for seven days was added. 4. He was discharged home today. 5. Follow up in the office in one week.
--- NOTE | 2016-06-23 19:16 | DISCHARGE SUMMARY ---
DISCHARGE DIAGNOSES: 1. Left lower lobe pneumonia. 2. Coronary artery disease. 3. Hypercholesterolemia. DISCHARGE MEDICATIONS: 1. Augmentin 500 mg 3 times a day for 7 days. 2. Aspirin 81 mg daily. 3. Atorvastatin 40 mg daily. 4. Plavix 75 mg daily. 5. Lisinopril 5 mg daily. 6. Metoprolol tartrate 25 mg twice a day. 7. Nitrostat 0.4 mg sublingually if needed for chest pain. Mr. West is a 71-year-old male admitted through the Emergency Room with fever and chills, generalized weakness, shortness of breath, nausea, vomiting and evidence of left lower lobe pneumonia. HOSPITAL COURSE: The patient was admitted to [facility] on 05/29/2016 with chest pain. He had a 99% stenosis of his right coronary artery and had a stent placed. His cardiac condition has been stable since then. The patient was doing quite well without any problems, but the Friday prior to his admission he started having generalized aches and pains and was feeling congested. He has developed fever. He had some chills. I did see him for his hospital followup after his non-ST segment elevation myocardial infarction and was complaining of feeling weak and tired. He was congested. He had some cough. Laboratory tests including influenza A and B were negative. Since his office visit his symptoms have progressed. On the morning of admission, he called the office stating that he was having fever and chills and his temperature was over 39. He was feeling quite tired. He was congested. I asked him to come to the Emergency Room to be evaluated. His chest x-ray showed evidence of left lower lobe infiltrate. He was admitted for further treatment. PAST MEDICAL HISTORY, SOCIAL HISTORY AND FAMILY HISTORY: All as noted on his admission history and physical. ALLERGIES: None. MEDICATIONS ON ADMISSION: All as noted on his admission history and physical. PHYSICAL EXAMINATION AND ADMISSION LABORATORY TESTS: All as noted. HOSPITAL COURSE: The patient was admitted to medical bed. Resuscitation level 1. Cultures were done. Laboratory tests were done. He was started on IV Zithromax and Rocephin. He was started on IV fluids. He was continued on his oral medications. His condition was closely monitored. His cardiac status remained stable. After admission, he remained afebrile. His symptoms started to improve. He was feeling less congested. He was tolerating his medications and tolerating the increase in his activity. Repeat chest x-ray showed resolution of the left lower lobe abnormality. Once his condition improved and he was tolerating his diet his appetite started to improve and he was ambulating without any problems. The patient was discharged home on the medications as noted above. Follow up in the office in one week. The patient was to continue with his cardiology followup.
== END 2016-06-09 11:17 | disposition home or self-care (01) | DRG 195 ==
LOC: ENRESERVTM → ENRESERVDT → C.EDB 13:59 → C.MS4W 16:58
PROVIDERS: ADMIT Internal Medicine; ATTEND Internal Medicine
DX: J18.9 Pneumonia, unspecified organism (principal); I25.10 Atherosclerotic heart disease of native coronary artery without angina pectoris; E78.00 Pure hypercholesterolemia, unspecified; Z85.46 Personal history of malignant neoplasm of prostate; Z87.891 Personal history of nicotine dependence; Z86.010 Personal history of colon polyps; Z79.82 Long term (current) use of aspirin

== ENCOUNTER → 2016-08-07 | Outpatient (CLI) | payer OTHER, BC ==
[2016-08-07 12:59] LABS: BLOOD UREA NITROGEN 16 mg/dl (7-18); GLUCOSE 87 mg/dl (70-99)
[2016-08-07 13:00] LABS: ALT/SGPT 32 U/L (12-78); AST/SGOT 20 U/L (15-37); BUN/CREATININE RATIO 13.1 (10-20); CALCIUM 8.7 mg/dl (8.5-10.1); CARBON DIOXIDE 27 mmol/L (21-32); CHLORIDE 105 mmol/L (98-107); POTASSIUM 4.2 mmol/L (3.5-5.1); SODIUM 140 mmol/L (136-145)
[2016-08-07 13:01] LABS: ALB/GLOB RATIO 1.1 (0.9-2); ALKALINE PHOSPHATASE 70 U/L (45-117); CHOLESTEROL 98 mg/dl (0-200); CHOLESTEROL/HDL RATIO 2.5; HDL CHOLESTEROL 40 mg/dl; TRIGLYCERIDES 70 mg/dl (0-150); VERY LOW DENSITY LIPOPROT CALC 14 mg/dl
== END | disposition home or self-care (01) ==
LOC: C.LABSPEC 12:11
PROVIDERS: ATTEND Internal Medicine
DX: I25.10 Atherosclerotic heart disease of native coronary artery without angina pectoris (principal); E78.5 Hyperlipidemia, unspecified

== ENCOUNTER → 2017-02-07 | Outpatient (CLI) | payer OTHER, BC ==
[2017-02-07 12:56] LABS: BLOOD UREA NITROGEN 19 mg/dl (7-18); BUN/CREATININE RATIO 15.8 (10-20); CALCIUM 9.1 mg/dl (8.5-10.1); CARBON DIOXIDE 28 mmol/L (21-32); CHLORIDE 108 mmol/L (98-107); CHOLESTEROL 121 mg/dl (0-200); GLUCOSE 87 mg/dl (70-99); POTASSIUM 4.4 mmol/L (3.5-5.1); SODIUM 139 mmol/L (136-145); TRIGLYCERIDES 108 mg/dl (0-150); VERY LOW DENSITY LIPOPROT CALC 22 mg/dl
[2017-02-07 13:01] LABS: CHOLESTEROL/HDL RATIO 3.1; HDL CHOLESTEROL 39 mg/dl; PROSTATE SPECIFIC ANTIGEN 0.275 ng/ml (0.000-4.000)
== END | disposition home or self-care (01) ==
LOC: C.LABSPEC 12:07
PROVIDERS: ATTEND Internal Medicine
DX: I25.10 Atherosclerotic heart disease of native coronary artery without angina pectoris (principal); E78.5 Hyperlipidemia, unspecified; C61 Malignant neoplasm of prostate

== ENCOUNTER → 2017-02-22 | Outpatient (CLI) | payer OTHER, BC | END | disposition home or self-care (01) | LOC: C.LABSPEC 14:47 | PROVIDERS: ATTEND Internal Medicine | DX: Z12.11 Encounter for screening for malignant neoplasm of colon (principal) ==

== ENCOUNTER → 2017-08-21 | Outpatient (CLI) | payer OTHER, BC ==
[2017-08-21 14:15] LABS: ALBUMIN 4.2 gm/dl (3.4-5.0); ALT/SGPT 34 U/L (12-78); AST/SGOT 22 U/L (15-37); BLOOD UREA NITROGEN 17 mg/dl (7-18); CALCIUM 9.2 mg/dl (8.5-10.1); CARBON DIOXIDE 29 mmol/L (21-32); CHOLESTEROL 107 mg/dl (0-200); CREATININE 1.18 mg/dl (0.60-1.40); GLUCOSE 91 mg/dl (70-99); POTASSIUM 4.4 mmol/L (3.5-5.1); SODIUM 138 mmol/L (136-145)
[2017-08-21 14:18] LABS: ALKALINE PHOSPHATASE 70 U/L (45-117); LDL CHOLESTEROL (DIRECT) 67 mg/dl; TOTAL PROTEIN 7.8 gm/dl (6.4-8.2)
== END | disposition home or self-care (01) ==
LOC: C.LABSPEC 12:37
PROVIDERS: ATTEND Internal Medicine
DX: I25.10 Atherosclerotic heart disease of native coronary artery without angina pectoris (principal); E78.5 Hyperlipidemia, unspecified

== ENCOUNTER → 2017-10-01 | Outpatient (CLI) | payer OTHER, BC ==
[~2017-10-01] MED LIST changes: -ASPEC81 PO; +ASPI-320 PO
--- NOTE | 2017-10-01 14:19 | DIAGNOSTIC IMAGING REPORT ---
KUB HISTORY: Flank pain. Nephrolithiasis. COMPARISON: None. FINDINGS: The bowel gas pattern is unremarkable. There are no dilated loops of small bowel to suggest an obstruction. The renal shadows are partially by overlying bowel gas. However, no definite renal calculi identified. Multiple calcifications in the deep pelvis. These are nonspecific but favor phleboliths. Multiple brachytherapy seeds are noted within the prostate gland. There is a 6 mm lobular calcification within the right deep pelvis which overlies the right side of the bladder. This could represent a UVJ stone or phlebolith. No pneumoperitoneum or pneumatosis. IMPRESSION: 1. No renal calculi identified. 2. Multiple nonspecific calcifications within the deep pelvis. The majority of these favor phleboliths. However, there is a 6 mm calcification within the right deep pelvis overlying the bladder which raises the possibility of a UVJ stone. Please correlate clinically for the presence of right flank/groin pain. Electronically signed by: Talib Resendiz M.D. 10/01/2017 2:17 PM Dictated Date/Time: 10/01/2017 2:15 PM
== END | disposition home or self-care (01) ==
LOC: C.RAD 12:05
PROVIDERS: ATTEND Internal Medicine
DX: N20.0 Calculus of kidney (principal)